=== PATIENT | female | born 1990 | race African-American/Black ===

== ENCOUNTER 2020-08-20 13:08 | Outpatient (CLI) | payer MEDICAID | END 2020-08-20 13:09 | disposition home or self-care (01) | LOC: CSHULT 13:08 | PROVIDERS: ATTEND Nurse Practitioner Women's Health | DX: N63.15 Unspecified lump in the right breast, overlapping quadrants (principal) ==

== ENCOUNTER 2021-11-11 13:44 | Outpatient (CLI) | payer MEDICAID | END 2021-11-11 13:45 | disposition home or self-care (01) | LOC: CSHMAMMO 13:44 | PROVIDERS: ATTEND Nurse Practitioner Women's Health | DX: N63.12 Unspecified lump in the right breast, upper inner quadrant (principal) | CPT/HCPCS: 77066; G0279 ==